=== PATIENT | female | born 1975 | race Caucasian/White ===

== ENCOUNTER 2017-02-02 11:19 | Emergency (ER) | payer OTHER ==
[~2017-02-02] VITALS: Ht 162.6 cm; Wt 98.9 kg
[2017-02-02 12:56] LABS: BASOPHIL % 0.3 % (0-2); PLATELET COUNT 235 x10^3mcL (130-400)
[2017-02-02 12:57] LABS: RED CELL DISTRIBUTION WIDTH 15.9 % (11.5-14.5)
[2017-02-02 14:47] VITALS: BP 129/79
== END 2017-02-02 14:44 | disposition home or self-care (01) ==
LOC: ED 11:19
PROVIDERS: Emergency Medicine
DX: D25.9 Leiomyoma of uterus, unspecified (principal); D64.9 Anemia, unspecified; G43.909 Migraine, unspecified, not intractable, without status migrainosus; M54.30 Sciatica, unspecified side
CPT/HCPCS: 36415

== ENCOUNTER 2017-04-30 01:22 | Emergency (ER) | payer OTHER ==
[2017-04-30 02:27] LABS: CALCIUM 8.6 mg/dL (8.5-10.1); CARBON DIOXIDE 26.1 mmol/L (21-32); CHLORIDE SERUM 104 mmol/L (98-107); CREATININE SERUM 0.7 mg/dL (0.6-1.0); GFR1 > 60 mL/min; GLUCOSE SERUM 99 mg/dL (74-106); POTASSIUM SERUM 3.8 mmol/L (3.5-5.1); SODIUM SERUM 140 mmol/L (136-145)
[2017-04-30 02:31] LABS: ALBUMIN 3.9 g/dL (3.4-5.0); ALKALINE PHOSPHATASE 76 U/L (46-116); ALT/SGPT 32 U/L (14-59); AST/SGOT 22 U/L (15-37); BILIRUBIN TOTAL 0.27 mg/dL (0.20-1.00); LIPASE 179 IU/L (73-393)
[2017-04-30 02:32] LABS: TOTAL PROTEIN, SERUM 8.4 g/dL (6.4-8.2)
[2017-04-30 02:40] LABS: BASOPHIL % 0.1 % (0-2); PLATELET COUNT 215 x10^3mcL (130-400)
[2017-04-30 02:45] LABS: RED CELL DISTRIBUTION WIDTH 15.5 % (11.5-14.5)
[2017-04-30 05:22] VITALS: BP 120/57
== END 2017-04-30 05:22 | disposition home or self-care (01) ==
LOC: ED 01:22
PROVIDERS: Emergency Medicine
DX: R10.10 Upper abdominal pain, unspecified (principal); R11.2 Nausea with vomiting, unspecified; R19.7 Diarrhea, unspecified; G43.909 Migraine, unspecified, not intractable, without status migrainosus; Z90.49 Acquired absence of other specified parts of digestive tract
CPT/HCPCS: J0500; J2405; J3010; J7030

== ENCOUNTER 2017-06-02 15:22 | Emergency (ER) | payer OTHER ==
[2017-06-02 17:09] LABS: CALCIUM 9.3 mg/dL (8.5-10.1); CARBON DIOXIDE 31.5 mmol/L (21-32); CHLORIDE SERUM 105 mmol/L (98-107); CREATININE SERUM 0.6 mg/dL (0.6-1.0); GFR1 > 60 mL/min; GLUCOSE SERUM 103 mg/dL (74-106); POTASSIUM SERUM 3.5 mmol/L (3.5-5.1); SODIUM SERUM 140 mmol/L (136-145)
[2017-06-02 17:14] LABS: ALBUMIN 3.6 g/dL (3.4-5.0); ALKALINE PHOSPHATASE 80 U/L (46-116); ALT/SGPT 24 U/L (14-59); AST/SGOT 16 U/L (15-37); BILIRUBIN TOTAL 0.34 mg/dL (0.20-1.00); TOTAL PROTEIN, SERUM 7.9 g/dL (6.4-8.2)
[2017-06-02 17:16] LABS: BASOPHIL % 0.3 % (0-2); PLATELET COUNT 271 x10^3mcL (130-400); RED CELL DISTRIBUTION WIDTH 14.3 % (11.5-14.5)
[2017-06-02] MEDS ORDERED: TYLENOL PR (17:54)
[2017-06-02 19:45] VITALS: BP 110/57
== END 2017-06-02 19:15 | disposition home or self-care (01) ==
LOC: ED 15:22
PROVIDERS: Emergency Medicine
DX: L03.311 Cellulitis of abdominal wall (principal)
CPT/HCPCS: J3370; J7050

== ENCOUNTER 2017-09-21 12:04 | Emergency (ER) | payer OTHER ==
[~2017-09-21] VITALS: Ht 162.6 cm; Wt 99.8 kg
[~2017-09-21 12:04] MED LIST: TYLENOL PR
[2017-09-21 12:11] VITALS: Ht 162.6 cm; Wt 99.8 kg
[2017-09-21 13:16] VITALS: BP 130/73
== END 2017-09-21 13:16 | disposition home or self-care (01) ==
LOC: ED 12:04
DX: G43.909 Migraine, unspecified, not intractable, without status migrainosus (principal); I10 Essential (primary) hypertension; Z90.710 Acquired absence of both cervix and uterus
CPT/HCPCS: J1885; J2765

== ENCOUNTER 2017-11-22 13:27 | Emergency (ER) | payer OTHER ==
[~2017-11-22] VITALS: Ht 162.6 cm; Wt 95.7 kg
[2017-11-22 15:23] VITALS: BP 137/88
== END 2017-11-22 15:23 | disposition home or self-care (01) ==
LOC: ED 13:27
DX: G43.909 Migraine, unspecified, not intractable, without status migrainosus (principal)
CPT/HCPCS: J1885; J2765

== ENCOUNTER 2018-08-20 16:54 | Emergency (ER) | payer OTHER ==
[~2018-08-20] VITALS: Ht 162.6 cm; Wt 104.8 kg
[2018-08-20 17:48] VITALS: Ht 162.6 cm; Wt 104.8 kg
[2018-08-20 20:10] VITALS: BP 146/79
== END 2018-08-20 20:10 | disposition home or self-care (01) ==
LOC: ED 16:54
DX: G43.909 Migraine, unspecified, not intractable, without status migrainosus (principal); R11.0 Nausea; H53.149 Visual discomfort, unspecified; Z90.710 Acquired absence of both cervix and uterus
CPT/HCPCS: J0780; J1885; J3010

== ENCOUNTER 2018-08-26 13:52 | Emergency (ER) | payer OTHER ==
[~2018-08-26] VITALS: Ht 162.6 cm; Wt 103.1 kg
[2018-08-26 13:58] VITALS: Ht 162.6 cm; Wt 103.1 kg
[2018-08-26 17:08] VITALS: BP 130/80
== END 2018-08-26 17:08 | disposition home or self-care (01) ==
LOC: ED 13:52
DX: G43.909 Migraine, unspecified, not intractable, without status migrainosus (principal); I88.9 Nonspecific lymphadenitis, unspecified; Z90.710 Acquired absence of both cervix and uterus
CPT/HCPCS: J0780; J1885; Q0162

== ENCOUNTER 2019-06-11 13:17 | Emergency (ER) | payer OTHER ==
[~2019-06-11] VITALS: Ht 162.6 cm; Wt 95.3 kg
[2019-06-11 13:20] VITALS: Ht 162.6 cm; Wt 95.3 kg
[2019-06-11 13:49] LABS: BASOPHIL % 0.4 % (0-2); PLATELET COUNT 223 x10^3mcL (130-400); RED CELL DISTRIBUTION WIDTH 14.2 % (11.5-14.5)
[2019-06-11 14:53] LABS: ALKALINE PHOSPHATASE 108 U/L (46-116); ALT/SGPT 30 U/L (14-59); AST/SGOT 22 U/L (15-37); BILIRUBIN TOTAL 0.5 mg/dL (0.20-1.00); CALCIUM 9.5 mg/dL (8.5-10.1); CREATININE SERUM 0.6 mg/dL (0.6-1.0); GFR1 > 60 mL/min; GLUCOSE SERUM 91 mg/dL (74-106)
[2019-06-11 15:06] LABS: CHLORIDE SERUM 104 mmol/L (98-107); POTASSIUM SERUM 3.6 mmol/L (3.5-5.1); SODIUM SERUM 142 mmol/L (136-145)
[2019-06-11 16:14] VITALS: BP 142/70
== END 2019-06-11 16:14 | disposition home or self-care (01) ==
LOC: ED 13:17
DX: J98.01 Acute bronchospasm (principal); I10 Essential (primary) hypertension; G43.909 Migraine, unspecified, not intractable, without status migrainosus; Z90.710 Acquired absence of both cervix and uterus; Z98.890 Other specified postprocedural states
CPT/HCPCS: 36415; J7613